=== PATIENT | male | born 1965 | race Caucasian/White ===

== ENCOUNTER 2023-06-19 18:02 | Emergency (ER) | payer BC, SELFPAY ==
[2023-06-19 18:05] VITALS: BP 192/133
--- NOTE | 2023-06-19 18:55 | ED.GENMED ---
History of Present Illness
General
Chief Complaint: Blood Pressure Problem
Source: patient and family (daughter)
Exam Limitations: none
Time Seen by Provider: 06/19/23 18:31
Travel History
Have you had any contact with someone who has COVID-19?: No
Do you have any symptoms of coronavirus? Fever > 100 degrees, chills, cough, shortness of breath, sore throat, loss of taste or smell, muscle aches, or headache?: No
History of Present Illness
History of Present Illness:
This is a 58 year old male that comes in with c/o panic attack. Family states that he was sitting and his fingers started to curl up and they were screaming his name and he would not respond. State that he was putting his hands on his head and he
couldn't talk. States that he feels he was having a panic attack. states that he [place] Panic [place] [employer] and that he did not feel at this time he was hyperventilating. States that he is to be taking medication for Hypertension but he
didn't want to keep getting it refilled. State that he felt like he was tripping on Acid. States that he could hear everyone around him today but was unable to respond. Denies any fever, chills, chest pain, SOB, abd pain, nausea, vomiting, headache,
urinary burning.
Past History
Past History
ED Past Medical History: HTN and Psychiatric (Depression)
ED Past Surgical History: Orthopedic (Bilateral leg rods, Right arm repair) and Other (facial surgery, )
Social History
Tobacco: Former smoker
Alcohol: Daily (Beer 4)
Drug: None
Personal: Single
Living: with family
Employment: Employed
Review of Systems
Review of Systems
All Other Systems: ROS reviewed and negative except as documented in HPI and ROS
Constitutional: Reports no symptoms; Denies fever or chills
EENT: Reports no symptoms
Respiratory: Reports no symptoms; Denies cough or trouble breathing
Cardiac: Reports no symptoms; Denies chest pain
ABD/GI: Reports no symptoms; Denies abdominal pain, nausea, vomiting or diarrhea
: Reports no symptoms; Denies dysuria, frequency or urgency
Musculoskeletal: Reports other (Fingers curled up)
Skin: Reports no symptoms
Neurological: Reports dizzy and other ([place] like he was tripping on acid. ); Denies headache
Psychiatric: Reports no symptoms
Phy Exam
General Physical Exam
General Presentation: well appearing and no apparent distress
General age: appears stated age
General Skin: warm and dry
General Habitus: normal
General Mental: alert
General Hydration: appears well hydrated
ENT Exam
ENT Exam: TM's normal, pharynx normal and neck supple
Eye Exam
Eye Exam: EOMI
Cardiovascular Exam
Cardiovascular Exam: regular rate/rhythm, no edema, no murmur and normal peripheral pulses
Pulmonary Exam
Pulmonary Exam: lungs clear, no respiratory distress, no rales, chest non tender, no crackles, no rhonchi, no wheezing and no cough
Gastrointestinal Exam
Gastrointestinal Exam: normal bowel sounds, non tender, soft, no organomegaly, no pulsatile mass and non distended
Musculoskeletal Exam
Musculoskeletal Exam: full ROM and no edema
Skin Exam
Skin Exam: normal color, warm/dry, no rash and no petechia
Psychiatric Exam
Psychiatric Exam: normal mood/affect
Course
Orders/Labs/Results
Orders:
Orders
06/19/23 18:54
CT Head W/o Iv Contrast Urgent
Comment:
Reason For Exam: Dizziness, difficulty talking for short time
06/19/23 18:55
HydrALAZINE [Apresoline] 5 mg IV NOW STA
06/19/23 19:04
Electrocardiogram (*1) Urgent
Reason for Study: Hypertension, Benign
EKG- Treatment ONCE
06/19/23 19:26
Alcohol Urgent
Complete Blood Count/With Diff Urgent
Comprehensive Metabolic Panel Urgent
Troponin I Urgent
06/19/23 19:53
Urine Drug Abuse Screen Urgent
Date Specimen was Collected: 06/19/23
Time Specimen was Collected: 19:52
Abnormal Lab Results
06/19/23 06/19/23
19:26 19:53
WBC 4.3 L 10^3/uL
(4.8-10.8)
RBC 4.57 L 10^6/uL
(4.70-6.10)
MCV 96.3 H fL
(80.0-94.0)
MCH 34.6 H pg
(27.0-31.0)
Monocytes % 9.5 H %
(1.7-9.3)
AST 78 H U/L
(17-59)
ALT 91 H U/L
(0-50)
U Marijuana (THC) Screen Positive H
(Negative)
06/19/23 19:26
06/19/23 19:26
WBC very slightly low. AST/ALT elevation. (daily alcohol). Troponin <0.012
Vital Signs
Initial and Last Documented VS:
Initial Vital Signs
Temp Pulse Resp BP Pulse Ox
97.8 F 98 16 192/133 99
06/19/23 18:05 06/19/23 18:05 06/19/23 18:05 06/19/23 18:05 06/19/23 18:05
Last Documented Vital Signs
Temp Pulse Resp BP Pulse Ox
97.8 F 92 16 144/83 99
06/19/23 18:05 06/19/23 20:08 06/19/23 20:08 06/19/23 20:30 06/19/23 18:05
MDM/Problems Addressed
Differential Diagnosis Includes:
Panic disorder, Alcohol intoxication. Substance abuse
MDM/Problems Addressed:
This is a 58 year old male that comes in with family with c/o panic attack. Family states that he was sitting and they were screaming his name and he was unable to answer them. Sate that he was putting his hands on his had and that his fingers where
curling. Patient states that he felt like he was tripping on acid.
Will check labs, CT head, Urine drug. Will also medicate for elevated BP.
Back into see patient. Explained to patient that he is legally intoxicated. Explained that his liver enzymes are also elevated and his CT of the head is normal. Usure what caused his feeling of tripping on acid. Explained that this may be a
combination of a Panic attack and hyperventilating. Patient BP at this time is 144/83. Encouraged patient to follow up with the family doctor for repeat of his BP. Patient to return with any change in mental status or any other conerns.
Chronic conditions affecting care: HTN
Acute Exacerbation and/or Progression of Chronic Illness: HTN and Psychiatric illness (Depression)
*Radiology
Radiology exam reviewed: radiology read reviewed (CT head-NO acute intracranial abnormality noted. )
*Pulse Oximetry
Patient hypoxic: no
*Machine Farmworker Interpretation
Rate: Machine Farmworker- N/A
*Critical Care Note
Total Time (30-74mins, 75-104mins- exclusive of procedures): Not Applicable
ED Attending Note
-
Portions of this chart may have been created with voice recognition software.� Occasional wrong word or��sound alike� substitutions may have occurred due to the inherent limitations of voice recognition software.
Discharge Plan
Departure
Patient Disposition: Home (Routine Discharge)
Date of Disposition: 06/19/23
Time of Disposition: 21:21
Patient with high blood pressure during this ER visit?: Yes
Condition: Good
Covid-19: Not Applicable
Discharge Problem:
Alcohol use disorder
Instructions: Alcohol Use Disorder (DC), BLOOD PRESSURE
Prescriptions:
No Action
aspirin 325 mg Tablet
325 mg PO DAILY
Referrals:
NONE,* [Family Provider] -
Activity Restrictions/Additional Instructions:
As discussed, your blood work shows that your Liver enzymes are elevated due to your alcohol use. You are also considered legally intoxicated. Please try and decrease your alcohol use. Increase your water intake to 8-8oz glasses daily. Your CT of
the head is normal. Please follow up with the family doctor for recheck of your Blood pressure. At this time your BP was 144/83. IF YOU HAVE ANY CHANGE IN MENTAL STATUS OR YOU HAVE ANY OTHER CONCERNS PLEASE RETURN TO THE EMERGENCY ROOM.
Interventions
Interventions:
*Risk Screen - Suicide Last Done: 06/19/23 19:19
*General Assessment Last Done: 06/19/23 19:19
*Neglect/Abuse Screening Last Done: 06/19/23 19:19
*ED COVID-19 Vaccine History Last Done: 06/19/23 19:19
ED- Pulmonary Assessment Last Done: 06/19/23 19:31
ED- Neurological Assessment Last Done: 06/19/23 19:31
ED- Cardiac Assessment Last Done: 06/19/23 19:31
[2023-06-19 19:19] VITALS: BP 175/106; BMI 30.7
[2023-06-19] MEDS: APRESOLINE 5 MG IV (19:28)
[2023-06-19 19:30] VITALS: BP 161/109
[2023-06-19 19:36] LABS: % Basophils 0.9 % (0-2); % Eosinophils 2.6 % (0-6); % Immature Granulocytes 0.2 % (0-0.5); % Lymphocytes 34.7 % (20.5-51.1); % Monocytes 9.5 % (1.7-9.3); % Neutrophils 52.1 % (42.2-75.2); Absolute Eosinophils 0.1 10^3/uL (0-0.7); Absolute Lymphocytes 1.5 10^3/uL (1.2-3.4); Absolute Monocytes 0.4 10^3/uL (0.1-0.6); Absolute Neutrophils 2.2 10^3/uL (1.4-6.5); Hemoglobin 15.8 g/dL (13.0-18.0); Mean Corp Hgb Conc. 35.9 g/dL (33.0-37.0); Mean Corpuscular Hgb 34.6 pg (27.0-31.0); Mean Corpuscular Volume 96.3 fL (80.0-94.0); Mean Platelet Volume 9.1 fL (7.4-10.4); Nucleated Red Blood Cells % 0 % (-); Platelet Count 171 10^3/uL (130-400); Red Blood Cell Count 4.57 10^6/uL (4.70-6.10); Red Cell Dist. Width 11.9 % (11.5-14.5); White Blood Cell Count 4.3 10^3/uL (4.8-10.8)
[2023-06-19 19:56] LABS: ALT (SGPT) 91 U/L (0-50); AST (SGOT) 78 U/L (17-59); Albumin 4.5 g/dl (3.5-5.0); Alcohol 271 mg/dl; Alkaline Phosphatase 59 U/L (38-126); Blood Urea Nitrogen 14 mg/dl (9-20); Calcium 8.6 mg/dl (8.4-10.2); Carbon Dioxide 26 mmol/L (22-30); Chloride 105 mmol/L (98-107); Estimated Creatinine Clearance 115 ml/min; Glucose 98 mg/dl (70-99); Potassium 4.5 mmol/L (3.5-5.1); Sodium 138 mmol/L (135-145); Total Bilirubin 0.7 mg/dl (0.2-1.3); Total Protein 7.2 g/dl (6.3-8.2); eGFR > 60.00
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
[2023-06-19 20:02] LABS: Troponin I < 0.012 ng/ml
[2023-06-19 20:08] VITALS: BP 161/96
[2023-06-19 20:15] LABS: Amphetamines Negative (Negative); Barbiturates Negative (Negative); Benzodiazepines Negative (Negative); Buprenorphine Negative (Negative); Cocaine Negative (Negative); Marijuana Positive (Negative); Methadone Negative (Negative); Methamphetamines Negative (Negative); Opiates Negative (Negative); Phencyclidine Negative (Negative); Tricyclic Antidepressants Negative (Negative)
[2023-06-19 20:30] VITALS: BP 144/83
--- NOTE | 2023-06-19 23:56 | ED.GENMED ---
History of Present Illness
General
Chief Complaint: Blood Pressure Problem
Time Seen by Provider: 06/19/23 18:31
Travel History
Have you had any contact with someone who has COVID-19?: No
Do you have any symptoms of coronavirus? Fever > 100 degrees, chills, cough, shortness of breath, sore throat, loss of taste or smell, muscle aches, or headache?: No
Past History
Past History
ED Past Medical History: HTN and Psychiatric (Depression)
ED Past Surgical History: Orthopedic (Bilateral leg rods, Right arm repair) and Other (facial surgery, )
Social History
Tobacco: Former smoker
Alcohol: Daily (Beer 4)
Drug: None
Personal: Single
Living: with family
Employment: Employed
Course
Orders/Labs/Results
Orders:
Orders
06/19/23 18:54
CT Head W/o Iv Contrast Urgent
Comment:
Reason For Exam: Dizziness, difficulty talking for short time
06/19/23 18:55
HydrALAZINE [Apresoline] 5 mg IV NOW STA
06/19/23 19:04
Electrocardiogram (*1) Urgent
Reason for Study: Hypertension, Benign
EKG- Treatment ONCE
06/19/23 19:26
Alcohol Urgent
Complete Blood Count/With Diff Urgent
Comprehensive Metabolic Panel Urgent
Troponin I Urgent
06/19/23 19:53
Urine Drug Abuse Screen Urgent
Date Specimen was Collected: 06/19/23
Time Specimen was Collected: 19:52
Abnormal Lab Results
06/19/23 06/19/23
19:26 19:53
WBC 4.3 L 10^3/uL
(4.8-10.8)
RBC 4.57 L 10^6/uL
(4.70-6.10)
MCV 96.3 H fL
(80.0-94.0)
MCH 34.6 H pg
(27.0-31.0)
Monocytes % 9.5 H %
(1.7-9.3)
AST 78 H U/L
(17-59)
ALT 91 H U/L
(0-50)
U Marijuana (THC) Screen Positive H
(Negative)
06/19/23 19:26
06/19/23 19:26
Vital Signs
Initial and Last Documented VS:
Initial Vital Signs
Temp Pulse Resp BP Pulse Ox
97.8 F 98 16 192/133 99
06/19/23 18:05 06/19/23 18:05 06/19/23 18:05 06/19/23 18:05 06/19/23 18:05
Last Documented Vital Signs
Temp Pulse Resp BP Pulse Ox
97.8 F 92 16 144/83 99
06/19/23 18:05 06/19/23 20:08 06/19/23 20:08 06/19/23 20:30 06/19/23 18:05
*EKG
Interpreted by ED Provider?: Yes
Heart Rate: 89
Rate: normal
Rhythm: sinus
[place]: normal axis
Interval: normal interval
QRS Pattern: normal QRS
Ischemia: no ischemia
ED Attending Note
-
Portions of this chart may have been created with voice recognition software.� Occasional wrong word or��sound alike� substitutions may have occurred due to the inherent limitations of voice recognition software.
Discharge Plan
Departure
Patient Disposition: Home (Routine Discharge)
Date of Disposition: 06/19/23
Time of Disposition: 21:21
Patient with high blood pressure during this ER visit?: Yes
Condition: Good
Covid-19: Not Applicable
Discharge Problem:
Alcohol use disorder, Panic attacks
Instructions: Alcohol Use Disorder (DC), Panic Disorder (DC), BLOOD PRESSURE
Prescriptions:
No Action
aspirin 325 mg Tablet
325 mg PO DAILY
Referrals:
NONE,* [Family Provider] -
Activity Restrictions/Additional Instructions:
As discussed, your blood work shows that your Liver enzymes are elevated due to your alcohol use. You are also considered legally intoxicated. Please try and decrease your alcohol use. Increase your water intake to 8-8oz glasses daily. Your CT of
the head is normal. Please follow up with the family doctor for recheck of your Blood pressure. At this time your BP was 144/83. IF YOU HAVE ANY CHANGE IN MENTAL STATUS OR YOU HAVE ANY OTHER CONCERNS PLEASE RETURN TO THE EMERGENCY ROOM.
Interventions
Interventions:
*Risk Screen - Suicide Last Done: 06/19/23 19:19
*General Assessment Last Done: 06/19/23 19:19
*Neglect/Abuse Screening Last Done: 06/19/23 19:19
*ED COVID-19 Vaccine History Last Done: 06/19/23 19:19
*Nursing Disposition Last Done: 06/19/23 21:38
ED- Pulmonary Assessment Last Done: 06/19/23 19:31
ED- Neurological Assessment Last Done: 06/19/23 19:31
ED- Cardiac Assessment Last Done: 06/19/23 19:31
Discharge Date and Time
Discharge Date/Time: 06/19/23 21:38
== END 2023-06-19 21:38 | disposition home or self-care (01) ==
LOC: EMR 18:02
PROVIDERS: Clinical Nurse Specialist Family Health; EMERGENCY PHYSICIAN Student in an Organized Health Care Education/Training Program
DX: F10.10 Alcohol abuse, uncomplicated (principal); R06.4 Hyperventilation; R42 Dizziness and giddiness; I10 Essential (primary) hypertension; F41.0 Panic disorder [episodic paroxysmal anxiety]; F32.A Depression, unspecified; Z87.891 Personal history of nicotine dependence; Z91.030 Bee allergy status
CPT/HCPCS: 99284; 96374; 70450; 80053; 80306; 82077; 84484; 85025; 93005